=== PATIENT | female | born 1990 | race Caucasian/White ===

== ENCOUNTER 2017-03-17 19:49 | Emergency (ER) | payer OTHER ==
[~2017-03-17] VITALS: Ht 162.6 cm; Wt 61.2 kg
[~2017-03-17 19:49] MED LIST: IBUPROFEN 600600 M1 PO; NORCO 5-325 TA1 EACH PO
[2017-03-17 19:51] VITALS: BP 131/91
[2017-03-17] MEDS ORDERED: DAYSEE 0.15-0.1 EACH PO (19:57)
[2017-03-17] MEDS ORDERED: NAPROSYN500 MG PO (20:09)
[2017-03-17] MEDS ORDERED: TRAMADOL 50 MG50 MG PO (20:09)
== END 2017-03-17 20:51 | disposition home or self-care (01) ==
LOC: ER 19:49
DX: S46.912A Strain of unspecified muscle, fascia and tendon at shoulder and upper arm level, left arm, initial encounter (principal); F10.99 Alcohol use, unspecified with unspecified alcohol-induced disorder; X50.1XXA Overexertion from prolonged static or awkward postures, initial encounter; Y93.89 Activity, other specified; Y92.89 Other specified places as the place of occurrence of the external cause; Y99.8 Other external cause status

== ENCOUNTER 2019-02-05 17:26 | Emergency (ER) | payer BC ==
[~2019-02-05] VITALS: Ht 162.6 cm; Wt 68.0 kg
[~2019-02-05 17:26] MED LIST changes: +DAYSEE 0.15-0.1 EACH PO; +NAPROSYN500 MG PO; +TRAMADOL 50 MG50 MG PO
[2019-02-05] MEDS ORDERED: MOBIC7.5 MG PO (19:12)
[2019-02-05] MEDS ORDERED: KEFLEX500 M1 PO (19:12)
[2019-02-05] MEDS ORDERED: NORCO 5-325 TA1 EACH PO (19:12)
[2019-02-05 19:36] VITALS: BP 139/92
== END 2019-02-05 19:36 | disposition home or self-care (01) ==
LOC: ER 17:26
DX: L03.115 Cellulitis of right lower limb (principal)